=== PATIENT | male | born 1950 | race Caucasian/White ===

== ENCOUNTER 2019-05-28 06:00 | Outpatient (RCR) | payer MEDICARE, OTHER, SELFPAY | END 2019-06-27 00:01 | LOC: SOT 06:00 | PROVIDERS: Family Provider Internal Medicine; Visit Provider Internal Medicine | DX: R53.81 Other malaise (principal) | CPT/HCPCS: 97110 ×6; 97112 ==

== ENCOUNTER 2019-06-28 06:00 | Outpatient (RCR) | payer MEDICARE, SELFPAY | END 2019-07-28 23:59 | disposition home or self-care (01) | LOC: SOT 06:00 | PROVIDERS: Family Provider Internal Medicine; PCP Internal Medicine; Visit Provider Internal Medicine | DX: R53.81 Other malaise (principal) | CPT/HCPCS: 97110 ==

== ENCOUNTER 2019-07-30 06:00 | Outpatient (RCR) | payer MEDICARE, SELFPAY | END 2019-08-26 23:59 | disposition home or self-care (01) | LOC: SOT 06:00 | PROVIDERS: Family Provider Internal Medicine; PCP Internal Medicine; Visit Provider Internal Medicine | DX: R53.81 Other malaise (principal) | CPT/HCPCS: 97110 ==

== ENCOUNTER 2019-08-27 06:00 | Outpatient (RCR) | payer MEDICARE, OTHER, SELFPAY | END 2019-09-26 12:39 | disposition home or self-care (01) | LOC: SOT 06:00 | PROVIDERS: Family Provider Internal Medicine; PCP Internal Medicine; Visit Provider Internal Medicine | DX: R53.81 Other malaise (principal) | CPT/HCPCS: 97110 ==

== ENCOUNTER → 2019-09-01 11:31 | Outpatient (BNVA) | payer MEDICARE, OTHER, SELFPAY | PROVIDERS: Family Provider Internal Medicine; PCP Internal Medicine; Visit Provider Family Medicine | DX: A09 Infectious gastroenteritis and colitis, unspecified (principal); N18.6 End stage renal disease; Z99.2 Dependence on renal dialysis | CPT/HCPCS: 83630; 87086; 87493; 87505 ==

== ENCOUNTER 2019-10-17 18:18 | Emergency (ER) | payer MEDICARE, OTHER, SELFPAY ==
[2019-10-17 18:28] VITALS: BMI 25.7
[2019-10-17 18:31] VITALS: BP 112/71; PULSE 92; RESP 18; TEMP 36.4; O2SAT 94
--- NOTE | 2019-10-17 18:36 | W.ED.FALL ---
HPI - Fall General: Chief Complaint: Fall Stated Complaint: fall Time Seen by Provider: 10/17/19 18:26 Source: patient Mode of arrival: ambulatory Limitations: no limitations History of Present Illness: HPI Narrative: Patient is a very nice 69-year-old gentleman who presents to ED today with complaints of a fall. Patient tells me he was using his walker as normal and was reaching down into the bottom/lower freezer portion of his refrigerator and states he forgot to put the brakes on his walker. He states as he leaned forward the wheeled walker rolled out from underneath him causing him to fall forward and strike his right forehead on the freezer door. Patient states there was no LOC. He did not become lightheaded or dizzy afterwards. Patient tells me he has felt fine since. He does not complain of neck pain. He does tell me he is on anticoagulation although cannot remember the name of the medication. PMH: chronic lymphocytic leukemia, HTN, CAD, DM2, CKD, PVD MD complaint: fall Onset (ago): hour(s) Fall from: standing Fall witnessed: yes, by family Place fall occurred: home Loss of consciousness: None Prolonged down time: no Symptoms prior to fall: none Context: tripped/slipped Location of injury: head Severity: mild Associated symptoms-after fall: Reports no associated symptoms; Denies chest pain, headache(s), lightheadedness, neck pain or vertigo Review of Systems Eyes: Denies: change in vision, blurry vision, photophobia, eye discharge, floaters or seeing flashes Card: Denies: chest pain, palpitations, irregular heart rhythm, edema, lightheadedness, syncope or pre-syncope Resp: Denies: shortness of breath GI: Denies: nausea or vomiting Musc: Denies: neck pain, back pain or joint pain Skin/Breast: Reports: other (no lacerations/abrasions; hematoma to forehead) Neuro: Denies: headache, numbness in extremities, weakness in extremities, changes in sensation, lack of coordination, frequent falls, dizziness or vertigo [facility] PFSH: Social History Smoking and tobacco status: former smoker Alcohol intake: never History of recent travel: No Physical Exam Const: COMMON NORMALS: no apparent distress, average body habitus, oriented x3, no limitations, healthy appearing, alert and well nourished HENMT: COMMON NORMALS: hearing grossly normal bilaterally, external ears normal, EAC's normal and TM's normal bilaterally HEAD IMAGES: 1. large hematoma to R frontal region; no orbital injury; no tenderness to superior orbit FACE & SINUS: sinuses nontender EXTERNAL EAR: Yes external ears normal EXTERNAL AUDITORY CANAL: EAC's normal TYMPANIC MEMBRANE: TM's normal bilaterally Eye: COMMON NORMALS: PERRL, EOMs intact bilaterally and conjunctivae normal GENERAL EYE: normal appearance of both eyes VISUAL ACUITY: Yes acuity normal CONJUNCTIVA: Yes conjunctivae normal PUPIL: Yes PERRL Neck/C-Spine: COMMON NORMALS: full ROM CERVICAL SPINE: Yes cervical ROM normal, No pain with cervical ROM and No cervical spine tenderness Resp: COMMON NORMALS: normal respiratory effort Cardio: COMMON NORMALS: regular rate and regular rhythm RATE: regular rate RHYTHM: regular rhythm Back/Pelvis: COMMON NORMALS: thoracic and lumbar spine normal to inspection, no thoracic nor lumbar tenderness and thoraco-lumbar ROM normal Extremity: COMMON NORMALS: normal to inspection and full ROM Neuro: COMMON NORMALS: oriented x3 SENSORIUM/ORIENTATION: Yes alert Skin: COMMON NORMALS: no rashes or lesions noted GENERAL SKIN EXAM: no rashes or lesions noted Course Consultations: Consultation #1: Dr. Derian Daniel neurosurgery-recommends speaking to trauma surgery and he will consult once patient arrives Consultation #2: [facility] transfer line spoke to trauma surgery who recommended ED to ED transfer (this callback phone call took approximately 30-45 mins) Consultation #3: Dr. Hackett ED physician; accepts ED to ED transfer Vital Signs: Vital signs: Vital Signs Temperature 97.6 F 10/17/19 18:31 Pulse Rate 96 10/17/19 22:58 Respiratory Rate 18 10/17/19 22:58 Blood Pressure 124/79 10/17/19 22:58 Pulse Oximetry 94 10/17/19 22:58 MDM - Fall MDM Narrative: Medical decision making narrative: pt with small subdural hemorrhage; he will be transferred to [facility] ED for further evaluation; labs today consistent with his CLL and CKD diagnoses and are stable from his baseline labs; Dr. Jimenes and Dr. Mott were both aware of CT findings and agree with plan of care for transfer Lab Data: Labs: Lab Results 10/17/19 10/17/19 10/17/19 Range/Units 20:15 20:15 20:15 WBC 23.0 H (4.0-10.0) 10^3/ uL RBC 2.98 L (4.1-5.3) 10^6/u L Hgb 8.3 L (11.7-16.6) g/dL Hct 28.4 L (42.0-52.0) % MCV 95.3 H (80-94) fL MCH 27.9 L (28.0-34.0) pg MCHC 29.2 L (30.0-36.0) g/dL RDW 17.8 H (12.1-15.1) % Plt Count 113 L (130-400) 10^3/c mm MPV 10.3 (7.4-10.4) fL Neut % (Auto) 36.0 % Lymph % (Auto) 59.6 % Dunn % (Auto) 2.5 % Eos % (Auto) 0.7 % Baso % (Auto) 0.4 % Neut # (Auto) 8.3 H (1.8-7.7) 10^3/u L Lymph # (Auto) 13.7 H (0.8-4.8) 10^3/u L Dunn # (Auto) 0.6 (0.2-0.9) 10^3/u L Eos # (Auto) 0.2 (0.0-0.8) 10^3/u L Baso # (Auto) 0.1 (0.0-0.1) 10^3/u L Nucleated RBC % (a uto) 0 % Nucleated RBCs # 0.0 /100WBC PT 14.60 H (10.5-13.3) SECO NDS INR 1.14 (0.8-1.2) APTT 28.4 (23.9-36.7) SECO NDS Sodium 143 (136-145) mmol/L Potassium 4.2 (3.5-5.1) mmol/L Chloride 98 (98-107) mmol/L Carbon Dioxide 31 H (22-29) mmol/L Anion Gap 18.2 (5-19) BUN 40 H (8-23) mg/dL Creatinine 8.1 H* (0.7-1.2) mg/dL GFR Calculation 6.6 L (90-130) mL/min Glucose 181 H (65-115) mg/dL Calculated Osmolal ity 298 H (285-295) mOsm/k g Calcium 9.5 (8.5-10.5) mg/dL Total Bilirubin 0.2 (0.15-1.2) mg/dL AST 10 (0-40) U/L ALT < 5 (0-41) U/L Alkaline Phosphata se 80 (40-130) IU/L Total Protein 6.3 L (6.6-8.7) g/dL Albumin 3.6 (3.5-5.2) g/dL Globulin 2.7 (1.3-4.6) g/dL Imaging Data^: CT Head: Radiologist's impression: [place] [address] CT Scan Report Signed Patient: Abel Mccormack Unit #: [id number] : 1950 Age/Sex: 69 / M ADM Date: 10/17/19 Loc: ER Room/Bed: Attending Dr: Ordering Provider/Ordering MD: Madeline Mcintyre Date of Service: 10/17/19 Procedure(s): CT head wo con* [id number] Accession Number(s): [id number] Report Number: [id number] PROCEDURE INFORMATION: Exam: CT Head Without Contrast Exam date and time: 10/17/2019 7:06 PM Age: 69 years old Clinical indication: Injury or trauma; Fall; Injury details: Hematoma above RT eye; Additional info: Fall/trauma; R frontal hematoma TECHNIQUE: Imaging protocol: Computed tomography of the head without contrast. Total DLP: 876.51 mGy-cm Radiation optimization: All CT scans at this facility use at least one of these dose optimization techniques: automated exposure control; mA and/or kV adjustment per patient size (includes targeted exams where dose is matched to clinical indication); or iterative reconstruction. COMPARISON: CT head wo con* [id number] 12/10/2018 1:00 PM FINDINGS: Brain: No acute parenchymal mass or bleed. Mild generalized cerebral atrophy. Mild amount of cerebral hemisphere subcortical and periventricular white matter low-density which appears chronic and presumably related to chronic microvascular disease. Small several mm acute high density parafalcine subdural hemorrhage (series 2, axial image 40 and 41). No associated mass effect. Ventricles: Normal. No ventriculomegaly. Bones/joints: Unremarkable. No acute fracture. Sinuses: Visualized sinuses are unremarkable. No fluid levels. Mastoid air cells: Visualized mastoid air cells are well aerated. Soft tissues: Approximately 4 cm scalp hematoma right frontal region. CT/CT head wo con* [id number] IMPRESSION: 1.) Small several mm acute high density parafalcine subdural hemorrhage (series 2, axial image 40 and 41). Approximately 4 cm right frontal region scalp hematoma. 2.) Mild cerebral atrophy and mild senescent white matter changes. Radiation Dose CTDIVOL = (mGy): DLP = 876.51 (mGy-cm) Dictated By: Ko Salmeron MD Signed By: Ko Salmeron MD Signed Date/Time: 10/17/191945 DD/ 44 Discharge Plan Discharge Patient Disposition: Transfer to ED Clinical Impression: Subdural hemorrhage Condition: Stable Prescriptions: No Action cyclobenzaprine 10 mg tablet 10 mg PO QID PRN (Reason: muscle spasm) RF: 0 Lantus Solostar U-100 Insulin 100 unit/mL (3 mL) insulin pen 50 unit SUBCUT BID RF: 0 gabapentin 300 mg capsule 300 mg PO QDAY RF: 0 trazodone 50 mg tablet 150 mg PO .AT BEDTIME RF: 0 calcium acetate(phosphat bind) 667 mg capsule 667 mg PO TID RF: 0 sevelamer carbonate [Renvela] 800 mg tablet 800 mg PO TID RF: 0 dipyridamole 25 mg tablet 25 mg PO TID RF: 0 tamsulosin [Flomax] 0.4 mg capsule 0.4 mg PO DAILY RF: 0 allopurinol 100 mg tablet 100 mg PO DAILY RF: 0 tramadol 50 mg tablet 50 mg PO .Q 4 HOURS PRN (Reason: pain) Qty: 90 RF: 5 amiodarone 200 mg tablet 200 mg PO DAILY Qty: 90 RF: 3 carvedilol 6.25 mg tablet 6.25 mg PO BID Qty: 90 RF: 3 atorvastatin [Lipitor] 40 mg tablet 40 mg PO DAILY RF: 0 acyclovir 200 mg capsule 200 mg PO BID RF: 0 aspirin [Adult Aspirin Regimen] 81 mg tablet,delayed release (DR/EC) 81 mg PO DAILY RF: 0 (DME) Oxygen portable tank system concentrator Qty: 1 RF: 0 Dexilant 60 mg capsule,biphase delayed releas 60 mg PO QDAY Qty: 90 RF: 3 clopidogrel 75 mg tablet 75 mg PO QDAY Qty: 90 RF: 3 Referrals: Altaf John MD [Primary Care Provider] - Discharge Date/Time: 10/17/19 23:00 Coding Level of Care Code ED Curriculum Manager for Chg Fwd Exam Comprehensive
--- NOTE | 2019-10-17 19:18 | PC.NURSE ---
pt to CT at this time via stretcher.
--- NOTE | 2019-10-17 19:59 | XR_ITS ---
WS: [id number] CHEST XRAY TECHNIQUE: Portable chest. CLINICAL INFORMATION: cough/congestion COMPARISON: May 08, 2019 FINDINGS: Heart: Cardiomegaly. Lungs: Moderate pulmonary vascular congestion with small bilateral pleural effusions compatible with CHF. Bones: Normal visualized bony structures. XR/XR chest 1V portable [id number] IMPRESSION: Cardiomegaly with CHF and small bilateral pleural effusions.
[2019-10-17 20:29] LABS: Basophils # 0.1 10^3/uL (0.0-0.1); Basophils % 0.4 %; Eosinophils # 0.2 10^3/uL (0.0-0.8); Eosinophils % 0.7 %; Hematocrit 28.4 % (42.0-52.0); Hemoglobin 8.3 g/dL (11.7-16.6); Lymphocytes # 13.7 10^3/uL (0.8-4.8); Lymphocytes % 59.6 %; Mean Corpuscular HGB Conc 29.2 g/dL (30.0-36.0); Mean Corpuscular Hemoglobin 27.9 pg (28.0-34.0); Mean Corpuscular Volume 95.3 fL (80-94); Mean Platelet Volume 10.3 fL (7.4-10.4); Monocytes # 0.6 10^3/uL (0.2-0.9); Monocytes % 2.5 %; Neutrophils # 8.3 10^3/uL (1.8-7.7); Nucleated Red Blood Cells % 0 %; Platelet Count 113 10^3/cmm (130-400); Red Blood Count 2.98 10^6/uL (4.1-5.3); Red Cell Distribution Width 17.8 % (12.1-15.1)
[2019-10-17 21:03] LABS: Alanine Aminotransferase < 5 U/L (0-41); Albumin Level 3.6 g/dL (3.5-5.2); Alkaline Phosphatase 80 IU/L (40-130); Anion Gap 18.2 (5-19); Aspartate Amino Transferase 10 U/L (0-40); Blood Urea Nitrogen 40 mg/dL (8-23); Calcium 9.5 mg/dL (8.5-10.5); Carbon Dioxide 31 mmol/L (22-29); Chloride 98 mmol/L (98-107); Globulin 2.7 g/dL (1.3-4.6); Glomerular Filtration Rate 6.6 mL/min (90-130); Glucose 181 mg/dL (65-115); Osmolality Calculated 298 mOsm/kg (285-295); Potassium 4.2 mmol/L (3.5-5.1); Sodium 143 mmol/L (136-145); Total Bilirubin 0.2 mg/dL (0.15-1.2); Total Protein 6.3 g/dL (6.6-8.7)
[2019-10-17 21:20] LABS: INR 1.14 (0.8-1.2); Partial Thromboplastin Time 28.4 SECONDS (23.9-36.7)
[2019-10-17 21:58] VITALS: BP 120/67; PULSE 98; RESP 20; O2SAT 93
--- NOTE | 2019-10-17 21:58 | PC.NURSE ---
Called report to Radha Suero RN at [facility].
[2019-10-17 22:53] VITALS: RESP 18
[2019-10-17] MEDS: morphine 4 mg/mL SDV 1 mL 2 MG IVP (22:53)
[2019-10-17 22:58] VITALS: BP 124/79; PULSE 96; RESP 18; O2SAT 94
== END 2019-10-17 23:00 ==
PROVIDERS: Emergency Provider Physician Assistant; Family Provider Internal Medicine; PCP Internal Medicine
DX: I62.00 Nontraumatic subdural hemorrhage, unspecified (principal); Z79.4 Long term (current) use of insulin; Z79.82 Long term (current) use of aspirin; Z79.02 Long term (current) use of antithrombotics/antiplatelets; Z87.891 Personal history of nicotine dependence
CPT/HCPCS: 12345; 70450; 71045; 80053; 85025; 85610; 85730; 96374; 96375; 99282; 99285; J2270

== ENCOUNTER 2019-11-16 12:58 | Outpatient (CLI) | payer MEDICARE, OTHER, SELFPAY | END 2019-11-16 12:59 | disposition home or self-care (01) | LOC: WOUND 12:59 | PROVIDERS: Family Provider Internal Medicine; PCP Internal Medicine; Visit Provider Nurse Practitioner Family | DX: L89.152 Pressure ulcer of sacral region, stage 2 (principal); L89.890 Pressure ulcer of other site, unstageable; S51.801A Unspecified open wound of right forearm, initial encounter; X58.XXXA Exposure to other specified factors, initial encounter | CPT/HCPCS: 11042 ==

== ENCOUNTER 2019-11-22 15:21 | Outpatient (CLI) | payer MEDICARE, OTHER, SELFPAY | END 2019-11-22 15:22 | disposition home or self-care (01) | LOC: WOUND 15:21 | PROVIDERS: Family Provider Internal Medicine; PCP Internal Medicine; Visit Provider Nurse Practitioner Family | DX: L89.152 Pressure ulcer of sacral region, stage 2 (principal); E11.621 Type 2 diabetes mellitus with foot ulcer; L97.529 Non-pressure chronic ulcer of other part of left foot with unspecified severity; L97.519 Non-pressure chronic ulcer of other part of right foot with unspecified severity; E11.622 Type 2 diabetes mellitus with other skin ulcer; L97.319 Non-pressure chronic ulcer of right ankle with unspecified severity; S59.911A Unspecified injury of right forearm, initial encounter; X58.XXXA Exposure to other specified factors, initial encounter | CPT/HCPCS: 99214; 99215 ==

== ENCOUNTER 2019-12-04 09:29 | Outpatient (CLI) | payer MEDICARE, OTHER, SELFPAY | END 2019-12-04 09:30 | disposition home or self-care (01) | LOC: WOUND 09:30 | PROVIDERS: Family Provider Internal Medicine; PCP Internal Medicine; Visit Provider Nurse Practitioner Family | DX: I73.9 Peripheral vascular disease, unspecified (principal); L97.522 Non-pressure chronic ulcer of other part of left foot with fat layer exposed; L97.329 Non-pressure chronic ulcer of left ankle with unspecified severity; L97.519 Non-pressure chronic ulcer of other part of right foot with unspecified severity; S51.811A Laceration without foreign body of right forearm, initial encounter; X58.XXXA Exposure to other specified factors, initial encounter | CPT/HCPCS: 11042 ==